=== PATIENT | female | born 1995 | race Two or more races ===

== ENCOUNTER 2019-09-05 00:14 | Inpatient (IN) | payer MEDICAID ==
[~2019-09-05] VITALS: Ht 162.6 cm; Wt 117.0 kg
[2019-09-05] MEDS ORDERED: ONDANSETRON HCL 4MG/2ML INJ IV STA (01:39)
[2019-09-05] MEDS ORDERED: FAMOTIDINE 20MG/2ML VIAL IV STA (01:39)
[2019-09-05] MEDS ORDERED: SODIUM CHLORIDE 0.9% 1,000 ML IV ONE ×3 (01:39→04:45)
[2019-09-05 02:03] LABS: BASOPHILS % 0.2 % (0.0-2.0); EOSINOPHILS % 0.2 % (0.0-5.0); HEMATOCRIT. 50.6 % (36.0-48.0); HEMOGLOBIN. 16.7 g/dL (12.0-16.0); LYMPHOCYTES % 7.7 % (20.0-50.0); MEAN CORPUSCULAR HEMOGLOBIN 29.6 pg (28.0-32.0); MEAN CORPUSCULAR VOLUME 89.6 fL (81.0-99.0); MEAN PLATELET VOLUME 7.9 fl (7.4-10.4); MONOCYTES % 6.2 % (2.0-8.0); NEUTROPHILS % 85.7 % (40.0-76.0); PLATELET 359 x1000/uL (130-400); RED BLOOD CELL COUNT 5.65 mill/uL (4.2-5.4); RED CELL DISTRIBUTION WIDTH 13.8 % (11.6-14.6)
[2019-09-05 02:05] LABS: CHLORIDE 107 mEq/L (98-107)
[2019-09-05 02:09] LABS: HCG SCREEN NEGATIVE
[2019-09-05] MEDS ORDERED: IOHEXOL-300 100 ML BOTTLE ONE (04:30)
[2019-09-05 06:54] LABS: CLARITY URINE CLEAR (CLEAR); COLOR URINE YELLOW (YELLOW); KETONES URINE NEGATIVE (NEGATIVE); LEUKOCYTE ESTERASE URINE TRACE (NEGATIVE); NITRITE URINE NEGATIVE (NEGATIVE); OCCULT BLOOD URINE 2+ (NEGATIVE); PH URINE 5.5 (4.5-8.0); PROTEIN URINE NEGATIVE (NEGATIVE); SPECIFIC GRAVITY URINE 1.061 (1.005-1.030); UROBILINOGEN URINE 0.2 E.U./dL (0.2-1.0)
[2019-09-05 08:21] VITALS: BP 123/74
[2019-09-05 09:01] VITALS: BP 112/64
[2019-09-05] MEDS ORDERED: ACETAMINOPHEN 325MG TABLET PO PRN (10:30)
[2019-09-05] MEDS ORDERED: DIPHENHYDRAMINE 50MG/ML VIAL IV PRN (10:30)
[2019-09-05] MEDS ORDERED: ONDANSETRON HCL 4MG/2ML INJ IV PRN (10:30)
[2019-09-05 12:00] VITALS: BP 85/43
[2019-09-05] MEDS ORDERED: INFLUENZA VIRUS VACCINE(AFLURIA) 0.5ML SYR IM ONE (12:00)
[2019-09-05] MEDS: LEVOFLOXACIN 500MG PREMIX 100 ML IV SCH (13:56)
[2019-09-05] MEDS: SODIUM CHLORIDE 0.9% 1,000 ML IV SCH (13:56)
[2019-09-05 16:00] VITALS: BP 104/54
[2019-09-05 20:00] VITALS: BP 138/85
[2019-09-06] VITALS: BP 152/75
[2019-09-06 04:00] VITALS: BP 138/77
[2019-09-06] MEDS: SODIUM CHLORIDE 0.9% 1,000 ML IV SCH ×2 (05:43→11:21)
[2019-09-06 08:00] VITALS: BP 151/95
[2019-09-06 10:28] LABS: BASOPHILS % 0.1 % (0.0-2.0); EOSINOPHILS % 1.3 % (0.0-5.0); HEMATOCRIT. 38.4 % (36.0-48.0); HEMOGLOBIN. 12.7 g/dL (12.0-16.0); MEAN CORPUSCULAR HEMOGLOBIN 29.7 pg (28.0-32.0); MEAN CORPUSCULAR VOLUME 89.6 fL (81.0-99.0); MEAN PLATELET VOLUME 7.5 fl (7.4-10.4); MONOCYTES % 7.5 % (2.0-8.0); NEUTROPHILS % 59.1 % (40.0-76.0); PLATELET 293 x1000/uL (130-400); RED BLOOD CELL COUNT 4.29 mill/uL (4.2-5.4); RED CELL DISTRIBUTION WIDTH 13.8 % (11.6-14.6)
[2019-09-06 10:34] LABS: CHLORIDE 107 mEq/L (98-107)
[2019-09-06 10:40] LABS: PHOSPHORUS 2.8 mg/dL (2.5-4.9)
[2019-09-06] MEDS: LEVOFLOXACIN 500MG PREMIX 100 ML IV SCH (10:44)
[2019-09-06 12:00] VITALS: BP 113/61
[2019-09-07] MEDS ORDERED: LEVOFLOXACIN 500MG TABLET PO SCH (11:00)
== END 2019-09-06 14:00 | disposition home or self-care (01) | DRG 249 ==
LOC: ER 00:14 → EDBEDREQ 04:50 → 6EST 04:55 → ENRESERV 05:06
PROVIDERS: ADMIT Internal Medicine; ATTEND Internal Medicine
DX: K52.9 Noninfective gastroenteritis and colitis, unspecified (principal); R65.10 Systemic inflammatory response syndrome (SIRS) of non-infectious origin without acute organ dysfunction; E66.01 Morbid (severe) obesity due to excess calories; E86.0 Dehydration; Z68.41 Body mass index [BMI] 40.0-44.9, adult
CPT/HCPCS: 36415; 74177; 81003; 83735; 84100; 84703; 99285; C1893; J1956; J2405; J3490; J7030; Q9967